=== PATIENT | male | born 1960 | race Caucasian/White ===

== ENCOUNTER 2017-02-04 21:54 | Emergency (ER) | payer OTHER ==
[~2017-02-04] VITALS: Ht 177.8 cm; Wt 111.7 kg
[2017-02-04 22:05] VITALS: BP 135/82; PULSE 73; RESP 20; TEMP 98.3; O2SAT 97
[2017-02-04 22:35] VITALS: BP 134/77; PULSE 72; RESP 20; O2SAT 98
[2017-02-04] MEDS ORDERED: ATOR10TA15 PO (22:49)
[2017-02-04] MEDS ORDERED: SODIUM CHLORIDE 0.9% FLUSH 10 ML FLUSH IVF PRN (23:00)
--- NOTE | 2017-02-04 23:04 | PD ---
HPI Chief Complaint: Chest Pain Time Seen by Provider: 22:51 Travel History International Travel<30 days: No Contact w/Intl Traveler<30days: No Traveled to known affect area: No History of Present Illness HPI The patient is a 56-year-old male with no history of heart disease who complains of a muscle type ache and a small area on the left anterior lower chest beginning at 12:30 this afternoon. The pain is pleuritic and only hurts when he is coughing or moving or taking a deep breath. It does not hurt when he lies still. He denies any nausea, shortness of breath or diaphoresis or radiation of pain or syncopal or near syncopal spells. 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 Cristina Cardoza, and this is not for heart disease but because he had a syncopal spell several years ago. Nothing has been found abnormal with regards to his heart in her workup. He had a stress test on July of last year which was normal. He does have elevated cholesterol but does not have hypertension, diabetes and does not smoke. PFSH Past Medical History Diminished Hearing: No Hiatal Hernia: Yes (2 repairs, 1996) Tetanus Vaccination: < 5 Years Influenza Vaccination: No Social History Alcohol Use: Yes (weekends; 2 beers with dinner) Tobacco Use: No (1 cigar/month) Substance Use: No Allergies-Medications (Allergen,Severity, Reaction): Coded Allergies: No Known Allergies (Unverified , 02/04/17) Reported Meds & Prescriptions Reported Meds & Active Scripts Active Reported Atorvastatin (Atorvastatin Calcium) 10 Mg Tab 10 Mg PO DAILY Review of Systems Except as stated in HPI: all other systems reviewed are Neg Physical Exam Narrative GENERAL: The patient is alert, oriented 3 in no apparent distress. His vital signs are normal. SKIN: Focused skin assessment warm/dry. HEAD: Atraumatic. Normocephalic. EYES: Pupils equal and round. No scleral icterus. No injection or drainage. ENT: No nasal bleeding or discharge. Mucous membranes pink and moist. NECK: Trachea midline. No JVD. CARDIOVASCULAR: Regular rate and rhythm. No murmur appreciated. I can completely reproduce the patient's pain by pressing around the nipple area on the left anterior chest wall. RESPIRATORY: No accessory muscle use. Clear to auscultation. Breath sounds equal bilaterally. GASTROINTESTINAL: Abdomen soft, non-tender, nondistended. Hepatic and splenic margins not palpable. MUSCULOSKELETAL: No obvious deformities. No clubbing. No cyanosis. No edema. NEUROLOGICAL: Awake and alert. No obvious cranial nerve deficits. Motor grossly within normal limits. Normal speech. PSYCHIATRIC: Appropriate mood and affect; insight and judgment normal. Data Data Last Documented VS Vital Signs Date Time Temp Pulse Resp B/P Pulse Ox O2 Delivery O2 Flow Rate FiO2 02/04/17 23:37 60 20 120/66 95 Room Air 02/04/17 22:05 98.3 Orders Electrocardiogram (02/04/17 22:59) Basic Metabolic Panel (Bmp) (02/04/17 22:59) Complete Blood Count With Diff (02/04/17 22:59) Troponin I (02/04/17 22:59) Ecg Monitoring (02/04/17 22:59) Iv Access Insert/Monitor (02/04/17 22:59) Oximetry (02/04/17 22:59) Oxygen Administration (02/04/17 22:59) Sodium Chloride 0.9% Flush (Ns Flush) (02/04/17 23:00) Chest, Pa & Lat (02/04/17 22:59) Labs Laboratory Tests Test 02/04/17 23:00 White Blood Count 5.9 TH/MM3 Red Blood Count 4.89 MIL/MM3 Hemoglobin 14.3 GM/DL Hematocrit 42.5 % Mean Corpuscular Volume 87.0 FL Mean Corpuscular Hemoglobin 29.2 PG Mean Corpuscular Hemoglobin 33.5 % Concent Red Cell Distribution Width 12.8 % Platelet Count 191 TH/MM3 Mean Platelet Volume 8.1 FL Neutrophils (%) (Auto) 61.3 % Lymphocytes (%) (Auto) 23.5 % Monocytes (%) (Auto) 11.4 % Eosinophils (%) (Auto) 3.0 % Basophils (%) (Auto) 0.8 % Neutrophils # (Auto) 3.5 TH/MM3 Lymphocytes # (Auto) 1.4 TH/MM3 Monocytes # (Auto) 0.7 TH/MM3 Eosinophils # (Auto) 0.2 TH/MM3 Basophils # (Auto) 0.0 TH/MM3 CBC Comment DIFF FINAL Differential Comment Sodium Level 143 MEQ/L Potassium Level 3.9 MEQ/L Chloride Level 107 MEQ/L Carbon Dioxide Level 28.4 MEQ/L Anion Gap 8 MEQ/L Blood Urea Nitrogen 23 MG/DL Creatinine 1.00 MG/DL Estimat Glomerular Filtration 78 ML/MIN Rate Random Glucose 96 MG/DL Calcium Level 8.6 MG/DL Troponin I LESS THAN 0.02 NG/ML MDM Medical Decision Making Medical Screen Exam Complete: Yes Emergency Medical Condition: Yes Medical Record Reviewed: Yes Interpretation(s) The EKG is normal with a normal sinus rhythm rate of 79. The CBC is normal. The basic metabolic profile shows a BUN of 23 and GFR of 78 but is otherwise normal. The troponin I is less than 0.02. Differential Diagnosis Atypical chest pain, chest wall pain, pleuritic pain, esophageal pain, gastrointestinal pain, acute coronary syndromehighly unlikely Narrative Course The patient likely has chest wall pain. He has had a recent stress test which was normal. At this time he will be prescribed Motrin 800 mg 3 times daily and follow-up with his primary care physician. He is given his blood work, EKG and imaging results. Diagnosis Primary Impression: Chest wall pain Med/Other Pt SpecificInfo: Prescription(s) given Scripts Ibuprofen 800 Mg [id number] Mg PO Q8HR #40 TAB Ref 0 Prov:Tom Jeter MD 02/04/17 Disposition: 01 DISCHARGE HOME Condition: Stable Tom Jeter MD Feb 04, 2017 23:04
[2017-02-04 23:10] LABS: AUTOMATED NEUTROPHIL # 3.5 TH/MM3 (1.8-7.7); BASOPHIL % 0.8 % (0.0-2.0); EOSINOPHIL # 0.2 TH/MM3 (0-0.4); HEMATOCRIT 42.5 % (39.0-51.0); HEMO FLAGS DIFF FINAL; LYMPH % 23.5 % (9.0-44.0); LYMPHOCYTE # 1.4 TH/MM3 (1.0-4.8); MEAN CORPUSCULAR HEMOGLOBIN 29.2 PG (27.0-34.0); MEAN CORPUSCULAR HGB CONC 33.5 % (32.0-36.0); MONO % 11.4 % (0.0-8.0); NEUT % 61.3 % (16.0-70.0); PLATELET COUNT 191 TH/MM3 (150-450); RED BLOOD COUNT 4.89 MIL/MM3 (4.50-5.90); RED CELL DISTRIBUTION WIDTH 12.8 % (11.6-17.2); WHITE BLOOD COUNT 5.9 TH/MM3 (4.0-11.0)
[2017-02-04 23:19] LABS: CHLORIDE 107 MEQ/L (98-107); POTASSIUM 3.9 MEQ/L (3.5-5.1); SODIUM (NA) 143 MEQ/L (136-145)
[2017-02-04 23:22] LABS: ANION GAP 8 MEQ/L (5-15); BICARBONATE 28.4 MEQ/L (21.0-32.0); BLOOD UREA NITROGEN 23 MG/DL (7-18)
[2017-02-04 23:25] LABS: GLOMERULAR FILTRATION RATE 78 ML/MIN (>89)
[2017-02-04 23:35] VITALS: O2SAT 95
[2017-02-04 23:37] VITALS: BP 120/66; PULSE 60; RESP 20; O2SAT 95
[2017-02-04] MEDS ORDERED: IBUP800T23 PO (23:47)
--- NOTE | 2017-02-04 23:51 | RADHPO ---
EXAM DATE/TIME: 02/04/2017 23:24 [facility] COMPARISON: No previous studies available for comparison. INDICATIONS : Left sided chest pain starting today MEDICAL HISTORY : None. SURGICAL HISTORY : None. ENCOUNTER: Initial ACUITY: 1 day PAIN SCORE: 8/10 LOCATION: Left chest FINDINGS: There is mild basilar opacity most characteristic of atelectasis or scarring. No effusion. Heart size upper limits normal. No pneumothorax. CONCLUSION: 1. Basilar parenchymal scarring and atelectasis. No effusion or pneumothorax. Esvin Lopes MD on February 04, 2017 at 23:48 Board Certified Radiologist. This report was verified electronically.
[2017-02-05 00:37] VITALS: BP 122/60
--- NOTE | 2017-02-05 13:12 | EKG ---
Date Performed: 02/04/2017 Time Performed: 22:15:26 PTAGE: 56 years EKG: Sinus rhythm Normal ECG NO PREVIOUS TRACING DOCTOR: De Hay Interpretating Date/Time 02/05/2017 13:10:28
== END 2017-02-05 00:36 | disposition home or self-care (01) ==
LOC: PHED 21:54
DX: R07.89 Other chest pain (principal)
CPT/HCPCS: 71020; 80048; 84484; 85025; 93005